=== PATIENT | male | born 1955 | race Caucasian/White ===

== ENCOUNTER 2023-08-18 19:40 | Emergency (ER) | payer OTHER, BC ==
[2023-08-18 20:13] VITALS: BP 140/74; RESP 18; BMI 31.6
[2023-08-18] MEDS ORDERED: ACETAMINOPHEN INJECTION 0 ML IVPB ONE (21:52)
[2023-08-18] MEDS ORDERED: ACETAMINOPHEN INJECTION 100 ML IVPB ONE (21:54)
[2023-08-18] MEDS: ACETAMINOPHEN 1000 MG/100 ML BAG IVPB ONE (21:55)
[2023-08-18] MEDS: SODIUM CHLORIDE 1,000 ML IV STA ×2 (21:58→23:36)
[2023-08-18 22:37] LABS: HEMATOCRIT 49.1 % (35.4-49); HEMOGLOBIN 16.5 G/dL (11.7-16.9); MCH 30.4 pg (25.7-33.7); MCHC 33.5 g/dl (32.0-35.9); MEAN CELL VOLUME 90.8 fl (80-96); MEAN PLT VOLUME 9.7 fl (7.5-11.1); PLATELET COUNT 141.8 10^3/uL (134-434); RBC 5.41 10^6/uL (4.00-5.60); RDW 13.5 % (11.9-15.9); WHITE BLOOD COUNT 11.9 10^3/uL (4.0-10.8)
[2023-08-18 22:50] LABS: PLATELET ESTIMATE ADEQUATE
[2023-08-18 22:54] LABS: BILIRUBIN,TOTAL 2.1 mg/dl (0.2-1); CALCIUM 9.6 mg/dl (8.5-10.1); CREATININE 1.3 mg/dl (0.6-1.3); POTASSIUM 4.2 mmol/L (3.5-5.1)
[2023-08-19 00:23] VITALS: PULSE 100; TEMP 99
== END 2023-08-19 00:30 | disposition home or self-care (01) ==
LOC: FER 19:40
PROC: 3E033NZ Introduction of Analgesics, Hypnotics, Sedatives into Peripheral Vein, Percutaneous Approach (ICD-10-PCS; principal; 2023-08-18)
PROC: 3E0337Z Introduction of Electrolytic and Water Balance Substance into Peripheral Vein, Percutaneous Approach (ICD-10-PCS; 2023-08-18)
PROC: 3E0337Z Introduction of Electrolytic and Water Balance Substance into Peripheral Vein, Percutaneous Approach (ICD-10-PCS; 2023-08-18)
DX: R50.9 Fever, unspecified (principal); R53.81 Other malaise; B34.9 Viral infection, unspecified; Z20.822 Contact with and (suspected) exposure to COVID-19
CPT/HCPCS: 0241U-QW; 36415; 71046-TC-FY; 80053; 81003; 81015; 83605; 85027; 87040; 93005; 99285-25; J0131